=== PATIENT | female | born 1995 | race Caucasian/White ===

== ENCOUNTER 2023-12-28 20:10 | Emergency (ER) | payer BC, SELFPAY ==
[2023-12-28 20:23] VITALS: BP 120/78; BP 131/72; PULSE 60; PULSE 66; RESP 18; TEMP 36.9; O2SAT 100; O2SAT 99; BMI 23.2
--- NOTE | 2023-12-28 20:33 | ECG_ITS ---
Test Reason : SEIZURE Blood Pressure : / mmHG Vent. Rate : 060 BPM Atrial Rate : 060 BPM P-R Int : 144 ms QRS Dur : 078 ms QT Int : 436 ms P-R-T Axes : 022 095 033 degrees QTc Int : 436 ms Normal sinus rhythm Rightward axis Nonspecific T wave abnormality Abnormal ECG No previous ECGs available Referred By: Generic ED Physician Electronically Signed By:LAWANDA ENGEL MD
[2023-12-28 21:09] LABS: MANUAL DIFF FLAG NO
[2023-12-28 21:11] LABS: Basophils Percent Auto 0.2 % (0-2); Eosinophils Absolute Auto 0.1 X10*3/uL (0.0-0.4); Eosinophils Percent Auto 2.8 % (0-4); Hematocrit 35.6 % (37.0-47.0); Imm Gran Abs Auto 0.01 X10*3/uL (0.00-0.03); Imm Gran Pct Auto 0.2 % (0.0-0.4); Lymphocytes Absolute Auto 1.3 X10*3/uL (1.2-4.9); Lymphocytes Percent Auto 30.7 % (20-40); Mean Corpuscular HGB Conc 33.7 g/dl (31.0-35.0); Mean Corpuscular Hemoglobin 29.4 pg (27.0-33.0); Mean Corpuscular Volume 87.3 fL (80.0-98.0); Monocytes Absolute Auto 0.4 X10*3/uL (0.1-1.2); Monocytes Percent Auto 10.1 % (2-11); Neutrophils Absolute Auto 2.4 x10*3/uL (2.0-8.3); Platelet Count 163 X10*3/uL (160-400); Red Blood Count 4.08 X10*6/uL (4.20-5.50); Red Cell Distribution Width 13.2 % (11.0-16.0); White Blood Count 4.3 X10*3/uL (4.8-10.8)
[2023-12-28 21:33] LABS: Lactic Acid 1.3 mmol/L (0.5-2.0)
[2023-12-28 21:36] LABS: Alanine Aminotransferase 15 U/L (0-31); Alkaline Phosphatase 66 U/L (39-117); Anion Gap 11 (12-20); Aspartate Amino Transferase 16 U/L (5-31); Bilirubin Total 0.4 mg/dL (0.0-1.0); Blood Urea Nitrogen 13 mg/dL (9-16); Calcium 9.2 mg/dL (8.4-10.2); Carbon Dioxide 25 mmol/L (22-29); Chloride 107 mmol/L (96-108); Creatinine Clr Calc Pharmacy 101.7; Estimated Glomerular Filt Rate > 60; Glucose Random 109 mg/dL (60-115); Potassium 3.4 mmol/L (3.3-5.1); Sodium 140 mmol/L (135-145); Total Protein 6.8 g/dL (6.5-8.0)
[2023-12-28 21:48] LABS: Troponin-I High Sensitivity < 2.7 ng/L (<3.5-17.0)
--- NOTE | 2023-12-28 21:58 | ED.GENADULT ---
HPI - General Adult General Chief complaint: General Medical Stated complaint: POSSIBLE SEIZURE Time Seen by Provider: 12/28/23 21:48 Source: patient Mode of arrival: ambulatory Limitations: no limitations History of Present Illness ED Provider: dr ovalle HPI narrative: Patient's history of vasovagal syncope episodes no family history of seizures nonalcoholic no head injury had previous head CT scan which were negative apparently was in a meeting standing for 45 minutes which she usually does started feeling lightheaded tunnel vision tried to set down got up again and felt same and then she lost consciousness bystander noticed her hands were stiff but no seizure activities noticed but patient was incontinent after the episode whole episode lasted about 30 seconds patient felt little confused and sleepy after the episode no headache now she feels normal Related Data Previous Rx's ?Medication ?Instructions ?Recorded lorazepam 1 mg tablet (Ativan) 1 mg PO Q4-6H PRN seizure activity 12/28/23 #7 tabs Allergies Allergy/AdvReac Type Severity Reaction Status Date / Time Seasonal Allergies Allergy Unknown Verified 12/28/23 20:32 Review of Systems Review of Systems: Yes all other systems are reviewed and are negative [facility] Social History Social History Advance Directives: No Advance Directives Information Provided: No Do you have a plan to hurt others: No Plan Patient : No Physical Exam ED Vital Signs: Vital Signs - 24 hr 12/28/23 20:23 12/28/23 22:53 12/28/23 23:28 Temperature 98.5 F 98.0 F Pulse Rate 66 65 65 Respiratory Rate 18 13 13 Blood Pressure 131/72 121/59 L 121/59 L Pulse Oximetry 100 98 98 Oxygen Delivery Method Room Air Room Air Room Air BMI result Body Mass Index 23.2 Appearance: Alert. Oriented X3. No acute distress. Eyes: PERRLA, No Nystagmus ENT: Pharynx normal. Oral Mucosa moist no tongue bite Neck: Normal inspection. Neck supple. CVS: Normal heart rate and rhythm. Pulses normal. Respiratory: No respiratory distress. Equal air entry bilateral, no wheezing/rales/rhonchi Abdomen: Soft and nontender. Bowel sounds are present, no mass palpable, no CVA tenderness Skin: Skin warm and dry. Normal skin color. Normal skin turgor. Extremities: No lower extremity edema. No calf tenderness Neuro: Oriented X 3. No motor deficit. No sensory deficit.No cerebellar signs , cranial nerves II-XII intact Medical Decision Making Medical Decision Making [facility] Narrative: Patient with vasovagal attack/seizure activity with no prior episode of similar in the past labs are stable patient advised to follow with neurologist for EEG does have a follow-up plan. Will give a prescription for Ativan advised to avoid lack of sleep and if she has more episode like this report to the ER. Patient advised not to drive and follow up with PCP/neurologist Differential Diagnosis Differential Diagnoses: The differential diagnosis associated with the presentation includes Vasovagal syncope/epilepsy Lab Data [facility] Lab Attestation statement: I reviewed the patient's lab results. 12/28/23 21:05 12/28/23 21:05 Labs: Lab Results 12/28/23 Range/Units 21:05 WBC 4.3 L (4.8-10.8) X10*3/uL RBC 4.08 L (4.20-5.50) X10*6/uL Hgb 12.0 (12.0-16.0) g/dl Hct 35.6 L (37.0-47.0) % MCV 87.3 (80.0-98.0) fL MCH 29.4 (27.0-33.0) pg MCHC 33.7 (31.0-35.0) g/dl RDW 13.2 (11.0-16.0) % Plt Count 163 (160-400) X10*3/uL MPV 10.0 (9.4-12.3) fL Immature Gran % (Auto) 0.2 (0.0-0.4) % Neut % (Auto) 56.0 (45-73) % Lymph % (Auto) 30.7 (20-40) % [place] % (Auto) 10.1 (2-11) % Eos % (Auto) 2.8 (0-4) % Baso % (Auto) 0.2 (0-2) % Lymph # (Auto) 1.3 (1.2-4.9) X10*3/uL [place] # (Auto) 0.4 (0.1-1.2) X10*3/uL Eos # (Auto) 0.1 (0.0-0.4) X10*3/uL Baso # (Auto) 0.0 (0.0-0.2) X10*3/uL Abs Immat Gran (auto) 0.01 (0.00-0.03) X10*3/uL Absolute Neuts (auto) 2.4 (2.0-8.3) x10*3/uL Absolute Nucleated RBC 0.000 (0.0-0.012) X10*3/uL Nucleated RBC % (auto) 0.0 (0.0-0.2) /100WBC Sodium 140 (135-145) mmol/L Potassium 3.4 (3.3-5.1) mmol/L Chloride 107 (96-108) mmol/L Carbon Dioxide 25 (22-29) mmol/L Anion Gap 11 L (12-20) BUN 13 (9-16) mg/dL Creatinine 0.77 (0.5-1.4) mg/dL Estim Creat Clear Calc 101.7 Estimated GFR > 60 Random Glucose 109 (60-115) mg/dL Lactic Acid 1.3 (0.5-2.0) mmol/L Calcium 9.2 (8.4-10.2) mg/dL Total Bilirubin 0.4 (0.0-1.0) mg/dL AST 16 (5-31) U/L ALT 15 (0-31) U/L Alkaline Phosphatase 66 (39-117) U/L Troponin I High Sens < 2.7 (<3.5-17.0) ng/L Total Protein 6.8 (6.5-8.0) g/dL Albumin 4.0 (3.5-5.0) g/dL Discharge Plan Discharge Clinical Impression: Syncope and collapse Patient Disposition: Home, Self-Care Instructions: Syncope (ED), Epilepsy (ED) Additional Instructions: Possible that you had epileplic seizure as a cause of syncope Do not drive Follow with neurologist/PCP for EEG take Ativan 1 mg tablets as needed for similar episodes if any Prescriptions: New lorazepam [Ativan] 1 mg tablet 1 mg PO Q4-6H PRN (Reason: seizure activity) Qty: 7 0RF Referrals: Gabe Hughes MD [Physician] - 3 days Interventions: ED Discharge Assessment Last Done: 12/28/23 23:28 Discharge Date/Time: 12/28/23 23:29 Print Language: [place]
[2023-12-28 22:53] VITALS: BP 121/59; PULSE 65; RESP 13; O2SAT 98
[2023-12-28 23:28] VITALS: BP 121/59; PULSE 65; RESP 13; TEMP 36.7; O2SAT 98
== END 2023-12-28 23:29 | disposition home or self-care (01) ==
PROVIDERS: Emergency Provider Internal Medicine
DX: R55 Syncope and collapse (principal); R42 Dizziness and giddiness; Z79.899 Other long term (current) drug therapy
CPT/HCPCS: 36415; 80053; 83605; 84484; 85025; 93005; 99283; 99285

== ENCOUNTER → 2023-12-28 20:33 | Outpatient (BNV) | payer BC, SELFPAY | PROVIDERS: Emergency Provider Internal Medicine; Visit Provider Internal Medicine Cardiovascular Disease | DX: R94.31 Abnormal electrocardiogram [ECG] [EKG] (principal) | CPT/HCPCS: 93010 ==